=== PATIENT | male | born 1980 | race Asian ===

== ENCOUNTER 2016-10-17 23:44 | Emergency (ER) | payer OTHER ==
--- NOTE | ~2016-10-17 | CR72 ---
[facility] Service of [facility] RADIOLOGY TEXT RESULTS PATIENT: DELTA COLE LOCATION: [facility] : 78 UNIT #: [id number] AGE: [address]: Dominick Mckeon MD SEX: M ORDER DR: [id number] [facility] [address] [place], [place] [address] [id number] MR#: [id number] Acc #: [id number] NAME: DELTA COLE : 1980 SEX: M STUDY DATE/TIME: 10/18/2016 0:12 UNIT: SULEMA ROOM: STUDY DESCRIPTION: CR Chest Single View Portable Attending Physician: Dominick Mckeon M.D. Ordering Physician: Dominick Mckeon M.D. Primary Care Physician: No Primary Care Physician MEDICAL IMAGING REPORT This report is preliminary unless electronic signature is present EXAM Single view chest. INDICATION Chest pain for 3 days. Epigastric abdominal pain. TECHNIQUE Single, portable, AP view chest without comparison. FINDINGS Heart and mediastinal contours are normal. The lungs are clear. IMPRESSION Negative chest radiograph. Dictated by... Mack Rueda M.D. THIS IS AN ELECTRONICALLY VERIFIED REPORT Mack Rueda M.D. at 10/18/2016 11:39 PM IRMA/bob TD: 10/18/2016 10:33 JOB #: [id number] MEDICAL IMAGING REPORT Page 1 of 1 COPY
--- NOTE | ~2016-10-17 | EKG ---
PATIENT: DELTA COLE UNIT #: [id number] Ventricular Rate: 102 BPM Atrial Rate: 102 BPM P-R Interval: 160 ms QRS Duration: 106 ms Q-T Interval: 380 ms QTC Calculation(Bezet): 495 ms P [place]: 68 degrees Calculated R [place]: 70 degrees Calculated T [place]: 46 degrees Diagnosis Line: Sinus tachycardia Diagnosis Line: Incomplete right bundle branch block Diagnosis Line: Borderline ECG Diagnosis Line: When compared with ECG of 22-JAN-2013 13:16, Diagnosis Line: (unconfirmed) Diagnosis Line: QT has lengthened Diagnosis Line: Confirmed by RAY WILLAMS MD ([id number]) on Diagnosis Line: 10/18/2016 8:23:10 AM INTERPRETING MD: ЕКАТЕРИНА NELSON
[2016-10-18 00:23] LABS: BASOPHIL% 0.3 % (0-2.5); EOSINOPHIL% 0.4 % (0.0-7.0); HEMOGLOBIN 15.5 gm/dL (13.0-16.0); LYMPHOCYTE# 2.5 X10e3 (1.0-3.5); MEAN CELL VOLUME 79.1 FL (83-96); MEAN CORPUSCULAR HGB CONC 32.9 g/dL (30-36); MEAN PLATELET VOLUME 8.3 FL (6.5-11.5); MONOCYTE# 0.5 X10e3 (0-1.0); MONOCYTE% 6.9 % (3.0-12.0); NEUTROPHIL# 4.3 X10e3 (1.5-7.1); NEUTROPHIL% 58.4 % (40-75); PLATELET COUNT 132 X10e3 (140-420); RED BLOOD COUNT 5.95 X10e (3.90-5.60); RED CELL DISTRIBUTION WIDTH 15.6 % (11.0-15.5); WHITE BLOOD COUNT 7.4 X10e3 (4.0-10.5)
[2016-10-18 00:25] LABS: POC - CKMB 1.1 ng/mL (0.0-7.9); POC - TROPONIN <0.05 ng/mL (<=0.05)
[2016-10-18 00:38] LABS: DIFF IND NO
[2016-10-18 00:56] LABS: ALBUMIN SERUM 4.3 g/dL (3.5-5.0); BILIRUBIN, DIRECT 0.1 mg/dL (0.0-0.2); BILIRUBIN,INDIRECT 0.6 mg/dL (0.0-0.9); BILIRUBIN,TOTAL 0.7 mg/dL (0.2-2.0); BUN/CREATININE RATIO 16.66; CALCIUM SERUM 8.4 mg/dL (8.4-10.2); CREATININE SERUM 0.6 mg/dL (0.6-1.4); GLOM FILT RATE Estimated 128.5 mL/min (>60); POTASSIUM 3.3 mmol/L (3.5-5.1); PROTEIN TOTAL SERUM 7.2 g/dL (6.0-8.3)
== END 2016-10-18 01:40 | disposition home or self-care (01) ==
LOC: CED 23:44
PROVIDERS: Emergency Medicine
DX: R07.89 Other chest pain (principal); G40.909 Epilepsy, unspecified, not intractable, without status epilepticus; F17.200 Nicotine dependence, unspecified, uncomplicated
CPT/HCPCS: 36415; 71010; 80048; 80076; 82150; 82553; 83690; 84484; 85025; 85379; 93005; 99285